=== PATIENT | male | born 1990 | race Two or more races ===

== ENCOUNTER 2023-09-01 16:49 | Inpatient (IN) | payer OTHER ==
[~2023-09-01] VITALS: Ht 162.6 cm; Wt 60.0 kg
[2023-09-01 22:51] LABS: BASOPHILS % (AUTO) 0.6 % (0.0-2.0); EOSINOPHILS % (AUTO) 0.6 % (1.0-6.0); HEMATOCRIT 47.9 % (41-53); HEMOGLOBIN 16.2 g/dL (13.5-17.5); LYMPHOCYTES # (AUTO) 1.8 K/uL (1.0-4.8); LYMPHOCYTES % (AUTO) 23.3 % (22.0-44.0); MEAN CORPUSCULAR HEMOGLOBIN 31.4 pg (26.0-34.0); MEAN CORPUSCULAR HGB CONC 33.8 G/dL (31.0-37.0); MEAN CORPUSCULAR VOLUME 93 fL (80-100); MONOCYTES # (AUTO) 0.5 K/uL (0.1-1.0); MONOCYTES % (AUTO) 6.4 % (2.0-9.0); NEUTROPHILS # (AUTO) 5.4 K/uL (1.8-7.7); NEUTROPHILS % (AUTO) 69.1 % (40.0-70.0); PLATELET COUNT (AUTO) 287 K/uL (150-450); RED BLOOD CELL COUNT(AUTO) 5.16 MIL/uL (4.50-5.90); RED CELL DISTRIBUTION WIDTH 12.6 % (11.5-14.5); WHITE BLOOD COUNT (AUTO) 7.9 K/uL (4.5-11.0)
[2023-09-01 23:00] LABS: ANION GAP 8 mmol/L (8-16); CARBON DIOXIDE 31 mmol/L (22-29); CHLORIDE 104 mmol/L (98-107); GLOMERULAR FILTR. RATE CALC > 60 mL/min (>60); GLUCOSE,RANDOM 107 mg/dL (70-110); POTASSIUM 4.7 mmol/L (3.5-5.1); SODIUM SERUM 143 mmol/L (136-145); UREA NITROGEN, BLOOD 10 mg/dL (7-18)
[2023-09-01] MEDS ORDERED: ONDANSETRON HCL 4 MG/2 ML VIAL IVP PRN (23:15)
[2023-09-01 23:16] LABS: COVID AG,FIA SOURCE NASAL SWAB
[2023-09-01] MEDS: HEPARIN SODIUM,PORCINE 5,000 UNITS/ML VIAL SQ SCH (23:32)
[2023-09-01 23:39] LABS: SARS-COV2 (COVID) ANTIGEN,FIA Negative (Negative)
[2023-09-02 07:46] LABS: EOSINOPHILS % (AUTO) 2.2 % (1.0-6.0); HEMATOCRIT 44.7 % (41-53); HEMOGLOBIN 15.6 g/dL (13.5-17.5); LYMPHOCYTES # (AUTO) 1.6 K/uL (1.0-4.8); LYMPHOCYTES % (AUTO) 26.8 % (22.0-44.0); MEAN CORPUSCULAR HGB CONC 34.8 G/dL (31.0-37.0); MEAN CORPUSCULAR VOLUME 92 fL (80-100); MONOCYTES # (AUTO) 0.6 K/uL (0.1-1.0); MONOCYTES % (AUTO) 9.2 % (2.0-9.0); NEUTROPHILS # (AUTO) 3.7 K/uL (1.8-7.7); NEUTROPHILS % (AUTO) 60.8 % (40.0-70.0); PLATELET COUNT (AUTO) 264 K/uL (150-450); RED BLOOD CELL COUNT(AUTO) 4.86 MIL/uL (4.50-5.90); RED CELL DISTRIBUTION WIDTH 12.8 % (11.5-14.5)
[2023-09-02 07:59] LABS: ANION GAP 4 mmol/L (8-16); CARBON DIOXIDE 32 mmol/L (22-29); CHLORIDE 105 mmol/L (98-107); CREATININE 0.91 mg/dL (0.60-1.30); GLUCOSE,RANDOM 99 mg/dL (70-110); POTASSIUM 4.2 mmol/L (3.5-5.1); SODIUM SERUM 141 mmol/L (136-145); UREA NITROGEN, BLOOD 12 mg/dL (7-18)
[2023-09-02 08:00] LABS: CALCIUM, TOTAL 8.9 mg/dL (8.8-10.5); GLOMERULAR FILTR. RATE CALC > 60 mL/min (>60)
[2023-09-02] MEDS: DOCUSATE SODIUM 100 MG CAPSULE PO SCH (08:03)
[2023-09-02 15:00] VITALS: BP 114/71; PULSE 89; RESP 20; TEMP 98.4
[2023-09-02] MEDS ORDERED: SODIUM CHLORIDE 3% 15 ML NEB SOLUTION NEB ONE (19:15)
[2023-09-02 19:20] VITALS: PULSE 118; RESP 20; O2SAT 98
[2023-09-02 19:40] VITALS: PULSE 112; RESP 18; O2SAT 99
[2023-09-02 19:54] VITALS: BP 115/70; PULSE 92; RESP 18; TEMP 98.5
[2023-09-03 03:06] LABS: HIV 1-2 SCREEN 4TH GEN W/RFLX Non Reactive (Non Reactive)
[2023-09-03] MEDS ORDERED: SODIUM CHLORIDE 3% 15 ML NEB SOLUTION NEB ONE ×3 (03:52→20:14)
[2023-09-03 03:55] VITALS: PULSE 94; RESP 18; O2SAT 98
[2023-09-03 04:55] VITALS: BP 105/64; PULSE 77; RESP 18; TEMP 97.7
[2023-09-03 08:22] VITALS: BP 116/72; PULSE 84; RESP 19; TEMP 98
[2023-09-03 17:27] LABS: MTB PCR w/Rif. Resistance-SPUT NOT DETECTED (Not Detectd)
[2023-09-03 19:57] VITALS: BP 111/73; PULSE 97; RESP 18; TEMP 98
[2023-09-03 20:18] VITALS: PULSE 95; RESP 18; RESP 20; O2SAT 98
[2023-09-04 05:09] VITALS: BP 108/61; PULSE 82; RESP 18; TEMP 98.1
[2023-09-04] MEDS ORDERED: SODIUM CHLORIDE 3% 15 ML NEB SOLUTION NEB ONE (08:35)
[2023-09-04 08:46] VITALS: BP 107/63; PULSE 81; RESP 20; TEMP 98.1
[2023-09-04 09:58] LABS: MTB PCR w/Rif. Resistance-SPUT NOT DETECTED (Not Detectd)
[2023-09-04 16:07] LABS: QUANTIFERON+, Nil Value 0.07 IU/mL; QUANTIFERON+,Mitogen Value >10.00 IU/mL; QUANTIFERON+,TB1 Antigen Value 4.69 IU/mL; QUANTIFERON+,TB2 Antigen Value 4.35 IU/mL; QUANTIFERON, TB GOLD PLUS Positive (Negative)
[2023-09-04 20:32] VITALS: BP 116/72; PULSE 95; RESP 18; TEMP 98.3
[2023-09-05 05:20] VITALS: BP 107/73; PULSE 79; RESP 18; TEMP 98.1
[2023-09-05 08:31] VITALS: BP 99/67; PULSE 72; RESP 18; TEMP 98.9
[2023-09-05 19:40] VITALS: BP 114/61; PULSE 86; RESP 18; TEMP 98.1
[2023-09-06 04:38] VITALS: BP 106/65; PULSE 84; RESP 18; TEMP 98
[2023-09-06 09:00] VITALS: BP 110/78; PULSE 90; RESP 18; TEMP 98.3
[2023-09-06 19:50] VITALS: BP 117/64; PULSE 87; RESP 18; TEMP 98.2
[2023-09-07 04:27] VITALS: BP 107/66; PULSE 85; RESP 18; TEMP 98.3
[2023-09-07 08:24] VITALS: BP 101/72; PULSE 78; RESP 20; TEMP 98
[2023-09-07 20:05] VITALS: BP 112/64; PULSE 98; RESP 20; TEMP 98.6
[2023-09-08 05:09] VITALS: BP 96/62; PULSE 77; RESP 18; TEMP 98.2
[2023-09-08 07:35] VITALS: BP 114/78; PULSE 95; RESP 18; TEMP 97.3
[2023-09-08 19:58] VITALS: BP 110/70; PULSE 88; RESP 18; TEMP 98.6
[2023-09-09 05:50] VITALS: BP 101/59; PULSE 79; RESP 18; TEMP 98
[2023-09-09 08:09] VITALS: BP 97/69; PULSE 75; RESP 20; TEMP 98.2
[2023-09-09 20:30] VITALS: BP 113/72; PULSE 72; RESP 20; TEMP 98.6
[2023-09-10 04:24] VITALS: BP 101/65; PULSE 77; RESP 20; TEMP 97.9
[2023-09-10 08:26] VITALS: BP 109/72; PULSE 77; RESP 20; TEMP 98.1
[2023-09-10 20:16] VITALS: BP 103/64; PULSE 86; RESP 18; TEMP 98.4
[2023-09-11 05:05] VITALS: BP 102/57; PULSE 86; RESP 18; TEMP 97.8
[2023-09-11 09:13] VITALS: BP 107/66; PULSE 89; RESP 18; TEMP 98.3
[2023-09-11 20:00] VITALS: BP 115/67; PULSE 91; RESP 18; TEMP 98.5
[2023-09-12 04:56] VITALS: BP 102/68; PULSE 71; RESP 18; TEMP 97.8
[2023-09-12 08:16] VITALS: BP 94/61; PULSE 80; RESP 19; TEMP 97.7
[2023-09-12 12:32] LABS: ANION GAP 3 mmol/L (8-16); CALCIUM, TOTAL 8.9 mg/dL (8.8-10.5); CARBON DIOXIDE 34 mmol/L (22-29); CHLORIDE 102 mmol/L (98-107); CREATININE 0.89 mg/dL (0.60-1.30); GLOMERULAR FILTR. RATE CALC > 60 mL/min (>60); GLUCOSE,RANDOM 94 mg/dL (70-110); POTASSIUM 4.5 mmol/L (3.5-5.1); SODIUM SERUM 139 mmol/L (136-145); UREA NITROGEN, BLOOD 11 mg/dL (7-18)
[2023-09-12 12:37] LABS: ALANINE AMINOTRANSFERASE 105 U/L (12-78); ALBUMIN 3.4 g/dL (3.4-5.0); ALKALINE PHOSPHATASE 25 U/L (46-116); ASPARTATE AMINOTRANSFERASE 31 U/L (15-37); BILIRUBIN,TOTAL 0.4 mg/dL (0.1-1.0); TOTAL PROTEIN, SERUM 6.7 g/dL (6.4-8.2)
[2023-09-12 19:35] VITALS: BP 115/70; PULSE 90; RESP 18; TEMP 98.8
[2023-09-13 04:45] VITALS: BP 103/69; PULSE 75; RESP 18; TEMP 98.3
[2023-09-13 09:16] VITALS: BP 112/63; PULSE 83; RESP 17; TEMP 98
[2023-09-13 20:12] VITALS: BP 100/73; PULSE 87; RESP 18; TEMP 98.3
[2023-09-14 08:31] VITALS: BP 118/73; PULSE 70; RESP 17; TEMP 97.9
[2023-09-14 19:49] VITALS: BP 123/64; PULSE 93; RESP 18; TEMP 98.6
[2023-09-15 08:30] VITALS: BP 100/57; PULSE 83; RESP 18; TEMP 97.7
[2023-09-15 19:27] VITALS: BP 105/66; PULSE 90; RESP 20; TEMP 98.7
[2023-09-16] VITALS (7 sets, daily range): BP systolic 94–123; BP diastolic 64–89; PULSE 76–157; RESP 18–52; TEMP 97.7–99
[2023-09-16 07:02] LABS: ALANINE AMINOTRANSFERASE 92 U/L (12-78); ALBUMIN 3.5 g/dL (3.4-5.0); ALKALINE PHOSPHATASE 27 U/L (46-116); ANION GAP 7 mmol/L (8-16); ASPARTATE AMINOTRANSFERASE 40 U/L (15-37); BILIRUBIN,TOTAL 0.5 mg/dL (0.1-1.0); CALCIUM, TOTAL 9.2 mg/dL (8.8-10.5); CARBON DIOXIDE 30 mmol/L (22-29); CHLORIDE 101 mmol/L (98-107); CREATININE 0.83 mg/dL (0.60-1.30); GLOMERULAR FILTR. RATE CALC > 60 mL/min (>60); GLUCOSE,RANDOM 94 mg/dL (70-110); POTASSIUM 3.8 mmol/L (3.5-5.1); SODIUM SERUM 138 mmol/L (136-145); TOTAL PROTEIN, SERUM 7.1 g/dL (6.4-8.2); UREA NITROGEN, BLOOD 12 mg/dL (7-18)
[2023-09-16] MEDS ORDERED: MIDAZOLAM HCL 5 MG/ML VIAL IVP ONE (12:00)
[2023-09-16] MEDS ORDERED: DiphenhydrAMINE HCL 50 MG/ML VIAL IVP ONE (12:00)
[2023-09-16] MEDS ORDERED: LORazepam 2 MG/ML VIAL IVP ONE (12:00)
[2023-09-16] MEDS: PYRAZINAMIDE 500 MG TABLET PO SCH (20:25)
[2023-09-16] MEDS: ETHAMBUTOL HCL 400 MG TABLET PO SCH (20:25)
[2023-09-16] MEDS: ISONIAZID 300 MG TABLET PO SCH (20:25)
[2023-09-16] MEDS: RIFAMPIN 300 MG CAPSULE PO SCH (20:25)
[2023-09-16] MEDS: PYRIDOXINE HCL 50 MG TABLET PO SCH (20:26)
[2023-09-16] MEDS ORDERED: SODIUM CHLORIDE 0.9% 500 ML IV ONE (22:35)
[2023-09-16] MEDS: SODIUM CHLORIDE 0.9% 500 ML IV ONE (22:42)
[2023-09-16] MEDS: DiphenhydrAMINE HCL 50 MG/ML VIAL IVP ONE (22:50)
[2023-09-17 04:06] LABS: GLUCOMETER DEV NAME(LOC) 6N.2B; GLUCOSE,POINT OF CARE 113 MG/DL (70-110)
[2023-09-17 05:41] VITALS: BP 102/68; PULSE 86; RESP 18; TEMP 97.5
[2023-09-17 08:31] VITALS: BP 96/60; PULSE 86; RESP 18; TEMP 97.7
[2023-09-17 12:23] VITALS: BP 107/69; PULSE 96; RESP 19; TEMP 98.2
[2023-09-17 15:40] VITALS: BP 101/68; PULSE 93; RESP 19; TEMP 98
[2023-09-17 19:57] VITALS: BP 117/71; PULSE 106; RESP 20; TEMP 98.3
[2023-09-18] VITALS (7 sets, daily range): BP systolic 96–115; BP diastolic 57–81; PULSE 78–102; RESP 16–19; TEMP 97.6–98.3
[2023-09-18] MEDS: HydrOXYzine HCL 50 MG TABLET PO PRN (17:32)
[2023-09-19 00:16] VITALS: BP 104/58; PULSE 98; RESP 18; TEMP 98
[2023-09-19 04:12] VITALS: BP 97/60; PULSE 79; RESP 18; TEMP 97.6
[2023-09-19 07:22] LABS: BASOPHILS % (AUTO) 0.7 % (0.0-2.0); EOSINOPHILS % (AUTO) 2.2 % (1.0-6.0); HEMATOCRIT 49.9 % (41-53); HEMOGLOBIN 17.3 g/dL (13.5-17.5); LYMPHOCYTES % (AUTO) 28.2 % (22.0-44.0); MEAN CORPUSCULAR HGB CONC 34.6 G/dL (31.0-37.0); MEAN CORPUSCULAR VOLUME 93 fL (80-100); MONOCYTES # (AUTO) 0.4 K/uL (0.1-1.0); MONOCYTES % (AUTO) 6.2 % (2.0-9.0); NEUTROPHILS # (AUTO) 4.5 K/uL (1.8-7.7); NEUTROPHILS % (AUTO) 62.7 % (40.0-70.0); PLATELET COUNT (AUTO) 246 K/uL (150-450); RED CELL DISTRIBUTION WIDTH 13.5 % (11.5-14.5); WHITE BLOOD COUNT (AUTO) 7.2 K/uL (4.5-11.0)
[2023-09-19 08:10] LABS: ALANINE AMINOTRANSFERASE 109 U/L (12-78); ALKALINE PHOSPHATASE 38 U/L (46-116); ANION GAP 12 mmol/L (8-16); ASPARTATE AMINOTRANSFERASE 49 U/L (15-37); BILIRUBIN,TOTAL 0.6 mg/dL (0.1-1.0); CALCIUM, TOTAL 9.3 mg/dL (8.8-10.5); CARBON DIOXIDE 28 mmol/L (22-29); CHLORIDE 96 mmol/L (98-107); CREATININE 1.05 mg/dL (0.60-1.30); GLOMERULAR FILTR. RATE CALC > 60 mL/min (>60); GLUCOSE,RANDOM 85 mg/dL (70-110); POTASSIUM 4.6 mmol/L (3.5-5.1); SODIUM SERUM 136 mmol/L (136-145); TOTAL PROTEIN, SERUM 7.9 g/dL (6.4-8.2); UREA NITROGEN, BLOOD 14 mg/dL (7-18)
[2023-09-19 17:15] VITALS: BP 101/61; PULSE 98; RESP 18; TEMP 97.8
[2023-09-19 20:58] VITALS: BP 123/71; PULSE 106; RESP 18; TEMP 98.3
[2023-09-20] VITALS (7 sets, daily range): BP systolic 103–151; BP diastolic 71–98; PULSE 79–96; RESP 16–20; TEMP 97.1–99.1
[2023-09-21 05:16] VITALS: BP 105/69; PULSE 90; RESP 18; TEMP 97.7
[2023-09-21 08:17] VITALS: BP 115/73; PULSE 96; RESP 18; TEMP 98
[2023-09-21 19:53] VITALS: BP 120/82; PULSE 96; RESP 18; TEMP 97.9
[2023-09-22 04:54] VITALS: BP 112/89; PULSE 89; RESP 18; TEMP 98.1
[2023-09-22 08:15] VITALS: BP 107/75; PULSE 104; RESP 19; TEMP 98.2
[2023-09-22 20:34] VITALS: BP 111/74; PULSE 100; RESP 18; TEMP 99.6
[2023-09-23 04:48] VITALS: BP 109/72; PULSE 89; RESP 18; TEMP 97.8
[2023-09-23 07:19] VITALS: BP 104/69; PULSE 76; RESP 18; TEMP 98.4
[2023-09-23] MEDS: HYDROCODONE/ACETAMINOPHEN 5-325 MG TABLET PO PRN (08:58)
[2023-09-23 09:52] LABS: BASOPHILS % (AUTO) 0.5 % (0.0-2.0); EOSINOPHILS % (AUTO) 1.9 % (1.0-6.0); HEMATOCRIT 50.6 % (41-53); HEMOGLOBIN 17.5 g/dL (13.5-17.5); LYMPHOCYTES # (AUTO) 1.6 K/uL (1.0-4.8); LYMPHOCYTES % (AUTO) 33.5 % (22.0-44.0); MEAN CORPUSCULAR HGB CONC 34.5 G/dL (31.0-37.0); MEAN CORPUSCULAR VOLUME 93 fL (80-100); MONOCYTES # (AUTO) 0.3 K/uL (0.1-1.0); MONOCYTES % (AUTO) 6.3 % (2.0-9.0); NEUTROPHILS # (AUTO) 2.8 K/uL (1.8-7.7); NEUTROPHILS % (AUTO) 57.8 % (40.0-70.0); PLATELET COUNT (AUTO) 215 K/uL (150-450); RED BLOOD CELL COUNT(AUTO) 5.45 MIL/uL (4.50-5.90); RED CELL DISTRIBUTION WIDTH 13.4 % (11.5-14.5); WHITE BLOOD COUNT (AUTO) 4.9 K/uL (4.5-11.0)
[2023-09-23 10:00] LABS: ANION GAP 9 mmol/L (8-16); CALCIUM, TOTAL 8.9 mg/dL (8.8-10.5); CARBON DIOXIDE 28 mmol/L (22-29); CHLORIDE 99 mmol/L (98-107); CREATININE 1.15 mg/dL (0.60-1.30); GLOMERULAR FILTR. RATE CALC > 60 mL/min (>60); GLUCOSE,RANDOM 131 mg/dL (70-110); SODIUM SERUM 135 mmol/L (136-145); UREA NITROGEN, BLOOD 9 mg/dL (7-18)
[2023-09-23] MEDS: MORPHINE SULFATE 2 MG/ML SYRINGE IVP PRN (13:13)
[2023-09-23] MEDS ORDERED: ETHA100 PO (17:06)
[2023-09-23] MEDS ORDERED: ISON300T17 PO (17:07)
[2023-09-23] MEDS ORDERED: PYRA500T33 PO (17:07)
[2023-09-23] MEDS ORDERED: PYRI-9 PO (17:08)
[2023-09-23] MEDS ORDERED: RIFA300C63 PO (17:08)
== END 2023-09-23 19:40 | DRG 178 ==
LOC: EMS 16:49 → EDH 09-02 08:10 → 6S 09-02 14:33 → 5N 09-16 23:09 → 6S 09-20 23:53
PROVIDERS: ADMIT Internal Medicine; ATTEND Internal Medicine
DX: A15.9 Respiratory tuberculosis unspecified (principal); E87.3 Alkalosis; J84.10 Pulmonary fibrosis, unspecified; Z20.822 Contact with and (suspected) exposure to COVID-19
CPT/HCPCS: 71045; 71046; 71250; 80048; 80053; 82962; 83735; 85025; 86480; 87015; 87150; 87206; 87389; 87556; 93005; 94640; 99285; J1200; J1644; J2060; J2250; J2270; J7040; 36415-L1; 36415-TC